=== PATIENT | female | born 1955 | race Caucasian/White ===

== ENCOUNTER 2016-09-09 10:19 | Day surgery (SDC) | payer OTHER ==
[~2016-09-09] VITALS: Ht 152.4 cm; Wt 58.2 kg
[2016-09-09] VITALS (7 sets, daily range): BP systolic 87–129; BP diastolic 53–67; PULSE 63–78; RESP 14–75; Ht 152.4 cm; Wt 58.2 kg
[~2016-09-09 10:19] MED LIST: DIPHENHYDRAMINE 50 MG INJ IV PRN; FENTAnyl 50 MCG/ML VIAL IV PRN; HYDROmorphONE (0.2 MG/ML) 10ML SYG IV PRN; MEPERIDINE 25 MG INJ IV PRN; OMEG1CAP30 PO; ONDANSETRON 4 MG INJ IV PRN; OXYCODONE/ACETAMINOPHEN (5/325) TAB PO PRN; PROCHLORPERAZINE 10 MG INJ IV PRN; ROSU20TA PO
[2016-09-09] MEDS ORDERED: CEFAZOLIN 2 GM/50 ML (PMX) 50 ML IVPB ONE (11:00)
[2016-09-09] MEDS ORDERED: SOD CHLORIDE 0.9% 1,000 ML IV ONE (11:00)
[2016-09-09] MEDS ORDERED: BUPIVACAINE 0.25% (MPF) 30 ML INJ ONE (11:50)
[2016-09-09] MEDS ORDERED: FENTAnyl 50 MCG/ML VIAL ONE (12:01)
[2016-09-09] MEDS ORDERED: LIDOCAINE 2% (SDV) 5 ML INJ ONE (12:01)
[2016-09-09] MEDS ORDERED: PROPOFOL 20 ML ONE (12:01)
[2016-09-09] MEDS ORDERED: MIDAZOLAM 1 MG/ML 2 ML INJ ONE (12:01)
[2016-09-09] MEDS ORDERED: CEFAZOLIN 1 GM INJ ONE (12:01)
[2016-09-09] MEDS ORDERED: POLYMYXIN/BACITRACIN 1L IRRIG ONE (12:10)
[2016-09-09] MEDS ORDERED: ONDANSETRON 4 MG INJ ONE (12:17)
[2016-09-09] MEDS ORDERED: METOCLOPRAMIDE 10 MG INJ ONE (12:18)
[2016-09-09] MEDS ORDERED: EPHEDrine SULFATE 50 MG/5 ML SYG ONE (12:24)
[2016-09-09] MEDS ORDERED: KETOROLAC 30 MG INJ ONE (12:37)
--- NOTE | 2016-09-09 12:58 | OPR ---
Date/Time of Note Date/Time of Note DATE: 09/09/16 TIME: 12:57 Operative Report Preoperative Diagnosis LIH Postoperative Diagnosis same Operation/Procedure Performed open LIH repair with medium ultrapro system mesh left ilioinguinal nerve block Surgeon: Andrés JORGE G. SEONG Sep 09, 2016 12:58
[2016-09-09] MEDS ORDERED: HYDROCODONE/APAP (5/325) TAB PO ONE (13:00)
--- NOTE | 2016-09-09 13:42 | OPR ---
DATE OF OPERATION: 09/09/2016 INDICATION: This is a 61-year-old female with a left inguinal hernia that is incarcerated. She req uests surgical repair. The risks, alternatives, benefits, and personnel were discussed with the pat ient. The patient expressed understanding and consented to the operation. PREOPERATIVE DIAGNOSIS: Left inguinal hernia. POSTOPERATIVE DIAGNOSIS: Incarcerated left inguinal hernia. OPERATION: 1. Open incarcerated left inguinal hernia repair with a medium size Ultrapro hernia system mesh. 2. Left ilioinguinal nerve block. SURGEON: Bisi Mendoza MD SPECIMENS: None. COMPLICATIONS: None. ANESTHESIA: General. DESCRIPTION OF PROCEDURE: The patient was taken to the OR and prepped and draped in the usual steri le fashion. A surgical timeout was performed. IV antibiotics were given. An oblique incision was made in the left inguinal region with a 10 blade. Dissection cautery was carried down to the wire stitcher al oblique fascia, which was opened with a 15 blade. This incision was extended laterally and later al superiorly. The indirect hernia was reduced. This area was bolstered with the disk portion of t he UltraPro system mesh with a running 0 Prolene from the pubic tubercle, along the shelving edge of the inguinal ligament and superiorly to the internal oblique with interrupted 3-0 Vicryls. [place] m esh was secured in similar fashion with a running 0 Prolene from the pubic tubercle, along the shelv ing of the inguinal ligament and superiorly to the internal oblique with interrupted 3-0 Vicryl. Ex ternal oblique fascia was closed with a running 3-0 Vicryl and Carissa's was closed with interrupted 3-0 Vicryl. The skin was closed using skin paul. Local anesthesia was then injected into the in cision site. Additionally, a left ilioinguinal nerve block was performed by identifying the ASIS an d 2 cm medial and inferior to the site and in a fanning motion the local anesthesia was injected. D ry dressings were applied. Dictated By: BISI CRAIN/YO Conf#: [id number] DID#: [id number]
== END 2016-09-09 14:40 | disposition home or self-care (01) ==
LOC: SDS 10:19
PROVIDERS: ATTEND Surgery
DX: K40.30 Unilateral inguinal hernia, with obstruction, without gangrene, not specified as recurrent (principal)
CPT/HCPCS: 49507; C1781; J0690; J1170; J1885; J2250; J2405; J2765; J3010; Z7512; Z7610

== ENCOUNTER 2016-10-07 06:00 | Day surgery (SDC) | payer OTHER ==
[2016-10-06 17:07] VITALS: BMI 29.2
[2016-10-07] VITALS (13 sets, daily range): BP systolic 104–143; BP diastolic 52–91; PULSE 68–88; RESP 11–18; Ht 152.4 cm; Wt 60.1 kg
[~2016-10-07] VITALS: Ht 152.4 cm; Wt 60.1 kg
[~2016-10-07 06:00] MED LIST changes: +CEFAZOLIN 2 GM/50 ML (PMX) 50 ML IVPB ONE; -DIPHENHYDRAMINE 50 MG INJ IV PRN; -FENTAnyl 50 MCG/ML VIAL IV PRN; -HYDROmorphONE (0.2 MG/ML) 10ML SYG IV PRN; -MEPERIDINE 25 MG INJ IV PRN; -ONDANSETRON 4 MG INJ IV PRN; -OXYCODONE/ACETAMINOPHEN (5/325) TAB PO PRN; -PROCHLORPERAZINE 10 MG INJ IV PRN; +SOD CHLORIDE 0.9% 1,000 ML IV SCH
[2016-10-07] MEDS ORDERED: BUPIVACAINE 0.25% (MPF) 30 ML INJ ONE (07:18)
[2016-10-07] MEDS ORDERED: POLYMYXIN/BACITRACIN 1L IRRIG ONE (07:18)
[2016-10-07] MEDS ORDERED: FENTAnyl 50 MCG/ML VIAL ONE (08:04)
[2016-10-07] MEDS ORDERED: ROCURONIUM 50 MG INJ ONE (08:20)
[2016-10-07] MEDS ORDERED: SUCCINYLCHOLINE CHLORIDE 100 MG/5 ML SYG IV ONE (08:20)
[2016-10-07] MEDS ORDERED: GLYCOPYRROLATE 1 MG INJ ONE (08:20)
[2016-10-07] MEDS ORDERED: PROPOFOL 20 ML ONE (08:20)
[2016-10-07] MEDS ORDERED: NEOSTIGMINE 3 MG/3 ML SYRINGE ONE (08:20)
[2016-10-07] MEDS ORDERED: CEFAZOLIN 1 GM INJ ONE (08:20)
[2016-10-07] MEDS ORDERED: LIDOCAINE 2% (SDV) 5 ML INJ ONE (08:20)
[2016-10-07] MEDS ORDERED: FENTAnyl 50 MCG/ML VIAL IV PRN ×2 (08:30)
[2016-10-07] MEDS ORDERED: ONDANSETRON 4 MG INJ IV PRN (08:30)
[2016-10-07] MEDS ORDERED: MEPERIDINE 25 MG INJ IV PRN (08:30)
[2016-10-07] MEDS ORDERED: HYDROmorphONE (0.2 MG/ML) 10ML SYG IV PRN ×3 (08:30)
[2016-10-07] MEDS ORDERED: DIPHENHYDRAMINE 50 MG INJ IV PRN (08:30)
[2016-10-07] MEDS ORDERED: METOCLOPRAMIDE 10 MG INJ IV PRN (08:30)
--- NOTE | 2016-10-07 08:50 | OPR ---
Date/Time of Note Date/Time of Note DATE: 10/07/16 TIME: 08:46 Operative Report Procedure Date: Oct 07, 2016 Preoperative Diagnosis Right inguinal hernia Postoperative Diagnosis same Operation Performed 1. open incarcerated right inguinal hernia repair with medium size ultra pro hernia system mesh 2. right ilioinguinal nerve block Surgeon: Andrés JORGE Indications This is a 61-year-old female with a right incarcerated inguinal hernia she required surgical repair. Risks alternatives benefits of procedure were discussed the patient patient expresses understanding and consents to the operation. Procedure Description Patient is taken to the OR and prepped and draped in usual sterile fashion. Surgical timeout was performed IV antibiotics given. Right inguinal oblique incision is made with a 10 blade. Dissection cautery was carried out 6 oblique fascia. On inspection there is old scar tissue that is remnant of the C- section surgery. This area was carefully dissected. External oblique fascia is identified. This area is opened with a 15 blade. This incision was extended medially for the last [place]. Direct hernia is identified and reduced. This portion is bolstered with the distal portion of the Ultram for hernia system medium size mesh. Mesh is secured in place with a running 0 Prolene from the pubic tubercle along the shelving edge of the inguinal ligament and superiorly to the internal oblique with interrupted 3-0 Vicryl. [place] mesh is secured in a similar fashion with a running 0 Prolene from the pubic tubercle along the shelving edge of the inguinal ligament. Superiorly the [place] mesh is secured with interrupted 3-0 Vicryl. Carissa's fascia is closed with interrupted 3-0 Vicryl. Skin is closed and skin paul local anesthesia is injected into the incision. Additionally a right ilioinguinal nerve block is performed by identifying a position 2 cm medial and inferior to the ASIS and in a fanning motion local anesthesia injected. Dry dressings were applied Andrés JORGE Oct 07, 2016 08:49
[2016-10-07] MEDS ORDERED: HYDROCODONE/APAP (5/325) TAB PO ONE (09:00)
[2016-10-07 11:27] LABS: ADD SCAN DIFF NO
[2016-10-07 11:31] LABS: BASOPHILS % 0.5 % (0.0-2.0); EOSINOPHILS # 0.1 10^3/ul (0.0-0.5); EOSINOPHILS % 3.2 % (0.0-7.0); HEMATOCRIT 36.6 % (37.0-47.0); HEMOGLOBIN 12.5 g/dl (12.0-16.0); LYMPHOCYTES % 45.1 % (15.0-51.0); MEAN CORPUSCULAR HEMOGLOBIN 30.9 pg (29.0-33.0); MEAN CORPUSCULAR HGB CONC 34.2 g/dl (32.0-37.0); MEAN CORPUSCULAR VOLUME 90.4 fl (82.0-101.0); MEAN PLATELET VOLUME 11.4 fl (7.4-10.4); MONOCYTE # 0.3 10^3/ul (0.3-0.9); MONOCYTES % 7.3 % (0.0-11.0); NEUTROPHIL # 1.9 10^3/ul (1.6-7.5); NEUTROPHILS % 43.7 % (39.0-77.0); PLATELET COUNT 177 10^3/UL (140-415); RED BLOOD COUNT 4.05 10^6/ul (4.20-5.40); RED CELL DISTRIBUTION WIDTH 12.4 % (11.5-14.5); WHITE BLOOD COUNT 4.4 10^3/ul (4.8-10.8)
[2016-10-07 11:40] LABS: ALBUMIN 4.7 g/dl (3.3-4.9); ALBUMIN/GLOBULIN RATIO 1.88; BILIRUBIN,INDIRECT 0.3 mg/dl (0-1.1); BILIRUBIN,TOTAL 0.3 mg/dl (0.2-1.3); TOTAL PROTEIN 7.2 g/dl (6.1-8.1)
[2016-10-07 11:48] LABS: CALCIUM 9.4 mg/dl (8.4-10.2); CREATININE 0.78 mg/dl (0.44-1.00); POTASSIUM 3.9 mmol/L (3.5-5.1)
[2016-10-07 11:52] LABS: INR 0.92; PROTIME 12.4 Sec (12.2-14.2)
[2016-10-07 11:53] LABS: PARTIAL THROMBOPLASTIN TIME 27.3 Sec (25.0-35.0)
== END 2016-10-07 11:10 | disposition home or self-care (01) ==
LOC: SDS 06:00
PROVIDERS: ATTEND Surgery
DX: K40.30 Unilateral inguinal hernia, with obstruction, without gangrene, not specified as recurrent (principal)
CPT/HCPCS: 80053; 85025; 85610; 85730; J0690; J1170; J2175; J2405; J2710; J2765; J3010; J7999; Z7610; C1781

== ENCOUNTER 2018-06-20 12:00 | Day surgery (SDC) | payer OTHER ==
[~2018-06-20] VITALS: Ht 157.5 cm; Wt 58.1 kg
[~2018-06-20 12:00] MED LIST changes: -CEFAZOLIN 2 GM/50 ML (PMX) 50 ML IVPB ONE; +CHOL100062 PO; -SOD CHLORIDE 0.9% 1,000 ML IV SCH
[2018-06-20 12:39] VITALS: Ht 157.5 cm; Wt 58.1 kg
[2018-06-20 12:46] VITALS: BP 124/77; PULSE 63; RESP 18
--- NOTE | 2018-06-20 12:48 | HPN ---
Date/Time of Note Date/Time of Note DATE: 06/20/18 TIME: 12:48 Interval H&P Admission Note Pt. seen H&P reviewed: No system changes OLIVER NELSON Jun 20, 2018 12:48
[2018-06-20] MEDS ORDERED: MIDAZOLAM 1 MG/ML 2 ML INJ ONE (12:54)
[2018-06-20] MEDS ORDERED: LIDOCAINE 2% (SDV) 5 ML INJ ONE (12:54)
[2018-06-20] MEDS ORDERED: PROPOFOL 20 ML ONE (12:54)
--- NOTE | 2018-06-20 13:27 | PREAC ---
Date/Time of Note Date/Time of Note DATE: 06/20/18 TIME: 13: Anesthesia Eval and Record Evaluation Time Pre-Procedure Interview DATE: 06/20/18 TIME: 13:26 Age 63 Sex female NPO: 8 hrs Preoperative diagnosis gerd, screening Planned procedure EGD, COLONOSCOPY Past Medical History Past Medical History: Includes Cardio: Dyslipidemia Endo: Diabetes Surgery & Anesthesia Issues No known issue Meds Anticoagulation: No Beta Gabriel within 24 hr: No Reason Beta Gabriel not given: Pt. not on B-Gabriel Reported Medications Cholecalciferol* (Vitamin D3*) 1,000 Unit Tablet, 1000 UNIT PO DAILY, TAB 05/04/18 Fish Oil/[place]-3 Fatty Acids ([place] 3 Fish Oil Softgel) 1 Cap.ec Capsule.dr, 1000 MG PO BID, CAP 12/20/14 Rosuvastatin Calcium* (Crestor*) 20 Mg Tablet, 20 MG PO HS for 1 Day, TAB 12/20/14 Meds reviewed: Yes Allergies Coded Allergies: No Known Allergies (Verified Allergy, Unknown, 10/06/16) Allergies Reviewed: Yes Labs/Studies Labs Reviewed: Reviewed by anesthesiologist test: N/A Pre-procedure Exam Last vitals Vital Signs Date Temp Pulse Resp B/P (MAP) Pulse Ox O2 O2 Flow FiO2 Time Delivery Rate 06/20/18 98.2 63 18 124/77 96 Room Air 12:46 (93) Airway: Adequate mouth opening, Adequate thyromental dist Mallampati: Mallampati III Teeth: Normal Lung: Normal Heart: Normal ASA Physical Status ASA physical status: 2 Emergency: None Pre-operative Attestations Prior to commencing anesthesia and surgery, the patient was re-evaluated, there was verification of: *The patient's identity *The results of appropriate recent lab work and preoperative vital signs *The above evaluation not changing prior to induction *Anesthetic plan, risk benefits, alternative and complications discussed with patient/family; questions answered; patient/family understands, accepts and wishes to proceed. ALVINA LEE DO Jun 20, 2018 13:27
--- NOTE | 2018-06-20 13:28 | PAC ---
Date/Time of Note Date/Time of Note DATE: 06/20/18 TIME: 13:27 Post-Anesthesia Notes Post-Anesthesia Note Last documented vital signs Vital Signs Date Temp Pulse Resp B/P (MAP) Pulse Ox O2 O2 Flow FiO2 Time Delivery Rate 06/20/18 98 62 20 120/69 98 Room Air 1327 Activity: WNL Respiratory function: WNL Cardiovascular function: WNL Mental status: Baseline Pain reasonably controlled: Yes Hydration appropriate: Yes Nausea/Vomiting absent: Yes ALVINA LEE DO Jun 20, 2018 13:28
[2018-06-20 13:51] VITALS: BP 132/76; PULSE 60; RESP 16
== END 2018-06-20 14:03 | disposition home or self-care (01) ==
LOC: GIL 12:00
PROVIDERS: ATTEND Internal Medicine Gastroenterology
DX: Z12.11 Encounter for screening for malignant neoplasm of colon (principal); K29.60 Other gastritis without bleeding; K64.8 Other hemorrhoids; E78.5 Hyperlipidemia, unspecified; E11.9 Type 2 diabetes mellitus without complications
CPT/HCPCS: 43239; 45378; 88305; 88312; 88313; J2250; Z7610